=== PATIENT | female | born 1990 | race Caucasian/White ===

== ENCOUNTER 2021-06-29 19:47 | Emergency (ER) | payer OTHER, SELFPAY ==
[2021-06-29] VITALS (23 sets, daily range): BP systolic 130–151; BP diastolic 75–100; PULSE 68–96; RESP 12–19; TEMP 36.8; O2SAT 97–100
--- NOTE | ~2021-06-29 | XR_ITS ---
XR chest 2V DATE: 06/29/2021 20:36 INDICATION: Generalized chest pain for one month. TECHNIQUE: PA and lateral views COMPARISON: 03/01/2009 two-view chest FINDINGS: Normal heart size. No hilar or mediastinal enlargement. No pulmonary infiltrate or consolid ation, pleural effusion or pulmonary vascular congestion or pneumothorax. Included skeletal structure s are unremarkable. IMPRESSION: Negative Reviewed, dictated and finalized at location A. IMPRESSION: Negative
--- NOTE | 2021-06-29 19:48 | ECG_ITS ---
Measurements Intervals [place] Rate: 88 P: 45 [place]: 160 QRS: 20 QRSD: 97 T: 29 QT: 344 QTc: 418 Interpretive Statements SINUS RHYTHM WITHIN NORMAL LIMITS NO PREVIOUS ECG AVAILABLE FOR COMPARISON Electronically Signed On 06-30-2021 11:10:02 CDT by Antwan Osborne M.D.
--- NOTE | 2021-06-29 19:56 | ED.CHESTPAIN ---
HPI - Chest Pain General Chief Complaint: Chest Pain Stated Complaint: chest pain and dizzy Time Seen by Provider: 06/29/21 19:49 Source: patient and family Mode of arrival: ambulatory Limitations: no limitations History of Present Illness HPI narrative: 22-year-old female with history of asthma presented to emergency department for evaluation of intermittent left-sided chest pain that has been ongoing for the last month. Describes a left-sided chest pain that radiates into her left shoulder and back. Patient states she did have follow-up at [facility] yesterday and was called tonight and told to return to the emergency department because of some lab abnormalities. Patient was not told what these abnormalities were. Patient states she did have onset of left-sided chest pain tonight while she was at work. Patient denies any associated shortness of breath with it. Patient does have asthma and is a smoker. Patient does report some current wheeze. Denies any prior history of PE or DVT. Patient denies any lower extremity tenderness or edema. Patient denies any recent fevers coughs or colds. Related Data Home Medications Medication Instructions Recorded Confirmed No Home Medications 06/29/21 Allergies Allergy/AdvReac Type Severity Reaction Status Date / Time tramadol Allergy Mild Rash Verified 06/29/21 19:52 Review of Systems Review of Systems: CONSTITUTIONAL: Denies fever, chills, or sweats. EYES: Denies visual changes, redness, or discharge. ENT: Denies rhinorrhea, congestion, sore throat, or otalgia. CARDIOVASCULAR: Chest pain RESPIRATORY: Denies cough or dyspnea. GASTROINTESTINAL: Denies abdominal pain, nausea, vomiting, or diarrhea. GENITOURINARY: Denies dysuria or hematuria. SKIN: Denies rash or itching. MUSCULOSKELETAL: Denies back pain, joint pain, or myalgia. NEUROLOGIC: Denies headache, numbness, or weakness. PSYCHIATRIC: Denies anxiety or depression. Exam Narrative: APPEARANCE: Well appearing, no pain, no distress, well-nourished. HEAD: normocephalic, atraumatic. EYES: PERRLA/EOMI, conjunctivae clear. NOSE: Normal no drainage NECK: Supple. No adenopathy, no masses. RESPIRATORY: Airway patent, respirations nonlabored. Mild wheeze on exam. No respiratory distress. CARDIOVASCULAR: Regular rate and rhythm without murmurs rubs or gallops. ABDOMINAL: Soft, nontender, nondistended, normal bowel sounds MUSCULOSKELETAL: Moves all extremities. Strength/ROM intact, No edema, No calf tenderness. NEURO: Alert. Cranial nerves II through XII intact. Grossly intact SKIN: Warm, dry. Normal Color Course Course Emergency Course: Called [facility] to see if they had any reason as to why the patient was called. Nurse stated that the patient had called earlier and at that time they were also unable to find any significant lab abnormalities. Nurse did review the CBC CMP TSH trop x2 UA and chest x-ray with no significant abnormalities. Patient was updated on the results of the work-up today including chest x-ray showed no acute cardiopulmonary abnormality. EKG was normal sinus rhythm with no acute ST changes. No evidence of acute STEMI. Patient had negative serial troponins. Patient also had a negative D-dimer. Patient states he does feel improved. Patient was encouraged to have close follow-up with her primary care physician. All questions and concerns were addressed. Patient was in no distress at time of discharge from respiratory. Vital Signs Vital signs: Vital Signs Temperature 98.3 F 06/29/21 19:49 Pulse Rate 91 06/29/21 19:49 Respiratory Rate 16 06/29/21 19:49 Blood Pressure 151/100 H 06/29/21 19:49 Pulse Oximetry 99 06/29/21 19:49 Temperature 98.3 F 06/29/21 19:49 Pulse Rate 94 06/29/21 20:57 Respiratory Rate 16 06/29/21 20:30 Blood Pressure 151/100 H 06/29/21 19:49 Pulse Oximetry 99 06/29/21 19:49 MDM - Chest Pain Lab Data Attestation: I reviewed the patient's lab results
[2021-06-29] MEDS: ASPIRIN 81 MG CHEWABLE TABLET 324 MG PO (20:07)
[2021-06-29 20:09] LABS: Basophils Percent Auto 0.3 % (0.2-1.2); Eosinophils Absolute Auto 0.3 K/mm3 (0-0.3); Eosinophils Percent Auto 2.7 % (0-4.4); Hematocrit 40.7 % (37.0-47.0); Hemoglobin 13.8 g/dL (12.0-15.0); Immature Granulocyte Absolute 0.02 K/mm3 (0.00-0.031); Immature Granulocyte Percent A 0.2 % (0-0.5); Lymphocytes Percent Auto 29.9 % (18.3-44.2); Mean Corpuscular HGB Conc 33.9 g/dl (32-36); Mean Corpuscular Hemoglobin 31.4 pg (26-34); Mean Corpuscular Volume 92.5 fl (80-100); Mean Platelet Volume 9.2 fl (7.4-10.4); Monocytes Absolute Auto 0.5 K/mm3 (0.1-0.6); Monocytes Percent Auto 5.1 % (2.6-8.5); Neutrophils Absolute Auto 6.2 K/mm3 (1.3-6.7); Neutrophils Percent Auto 61.8 % (45.5-73.1); Platelet Count Result 329 k/mm3 (150-375); Red Cell Distribution Width 13.3 % (11.5-14.5); White Blood Count 10.1 K/mm3 (4.5-10.0)
[2021-06-29 20:18] LABS: INR 0.9; Prothrombin Time 12.1 Seconds (11.1-14.7)
[2021-06-29 20:19] LABS: Alanine Aminotransferase 30 U/L (4-35); Albumin Level 4.7 g/dL (3.5-5.1); Alkaline Phosphatase 59 U/L (38-126); Anion Gap 8 mmol/L (8-16); Aspartate Amino Transferase 32 U/L (14-36); Bilirubin,Total 0.1 mg/dL (0.2-1.3); Blood Urea Nitrogen 13 mg/dL (7-17); Calcium 8.9 mg/dL (8.4-10.2); Carbon Dioxide 24 mmol/L (22-30); Chloride 106 mmol/L (98-107); Estimated CRCL calculation 82 ml/min; Estimated Glomerular Filt Rate > 60; Glucose 84 mg/dL (65-110); Lipase 180 U/L (23-300); Potassium 3.8 mmol/L (3.4-5.0); Sodium 138 mmol/L (137-145)
[2021-06-29] MEDS: ALBUTEROL SULFATE NEB 2.5 MG/0.5 ML INH 5 MG INHALATION (20:22)
[2021-06-29 20:29] LABS: Troponin I < 0.012 ng/mL (0.000-0.034)
[2021-06-29 21:14] LABS: D Dimer 0.27 ug/mL (<0.48)
[2021-06-29 21:44] LABS: Add Urine Microscopic? YES; Amorphous Sediment Urine Few; Appearance Urine Cloudy (Clear); Bilirubin Urine Negative (Negative); Blood Urine 1+ (Negative); Color Urine Yellow (Yellow); Glucose Urine UA Negative (Negative); Ketones Urine Negative (Negative); Leukocyte Esterase Ur Negative LEU/UL (Negative); Nitrate Urine Negative (Negative); Protein Urine Negative (Negative); RBC Urine 0-2 /hpf (0-2); Specific Grav Ur 1.015 (1.001-1.035); Squamous Epithelial Cell Urine Many /hpf (Few); Urobilinogen Urine Negative mg/dL (<2.0)
[2021-06-29 23:31] LABS: Troponin I < 0.012 ng/mL (0.000-0.034)
[2021-06-30] VITALS: PULSE 72; RESP 12; O2SAT 97
== END 2021-06-30 00:10 | disposition home or self-care (01) ==
PROVIDERS: Emergency Provider Emergency Medicine
DX: R07.9 Chest pain, unspecified (principal); J45.909 Unspecified asthma, uncomplicated; F17.200 Nicotine dependence, unspecified, uncomplicated
CPT/HCPCS: 36415; 71046; 80053; 81001; 81025; 83690; 84484; 85025; 85380; 85610; 85730; 93005; 94640; 99284; A9270

== ENCOUNTER 2022-04-18 20:57 | Emergency (ER) | payer OTHER, SELFPAY ==
--- NOTE | ~2022-04-18 | XR_ITS ---
EXAMINATION: XR chest 1V portable Exam Date/Time: 04/18/2022 21:35 RE RECORDING MIXER HISTORY: pain Comparison: 06/29/2021. RESULT: Lines, tubes, and devices: None. Lungs and pleura: Clear. Cardiomediastinal silhouette: Stable. Other: No acute osseous or upper abdominal finding. IMPRESSION: No acute cardiopulmonary process. Reviewed, dictated and finalized at location K. RECORDING MIXER
--- NOTE | ~2022-04-18 | CT_ITS ---
Non-contrast CT scan of the Abdomen and Pelvis Clinical indication: Kidney stone Technique: 5 mm axial scans were obtained through the abdomen and pelvis without intravenous or oral contrast. Dose reduction technique was used on this scan by utilizing automated exposure control and iterative reconstruction technique. The dose-length product (DLP) was 692.44 mGy-cm. Findings: Images through the lung bases reveal mild bibasilar atelectatic changes. No hydronephrosis. There is excreted contrast throughout the renal collecting systems, ureters, and b ladder from recent contrast enhanced exam, which markedly limits evaluation for stones. The liver, spleen, pancreas, gallbladder, and adrenals appear normal. There is no aortic aneurysm. There is no evidence of bowel obstruction. Images through the pelvis were performed. There is no evidence of ascites or lymphadenopathy. Urinary bladder is filled with contrast, otherwise unremarkable. No adnexal mass evident. No ascites. Impression: No significant abnormality seen. No hydronephrosis. Evaluation for renal stones is markedly limited due to excreted contrast material throughout the s ystem from recent contrast enhanced exam. Reviewed, dictated and finalized at location M. OR STEREO COMPILER TEAM LEAD Impression: No significant abnormality seen. No hydronephrosis. Evaluation for renal stones is markedly limited due to excreted contrast materi al throughout the system from recent contrast enhanced exam.
--- NOTE | ~2022-04-18 | CT_ITS ---
EXAMINATION: CTA chest PE protocol DATE: 04/18/2022 22:50 INDICATION: + dimer TECHNIQUE: Computed tomography angiography (CTA) of the chest was performed with 100 mL Omnipaque-350 intravenous contrast timed to evaluate the pulmonary arteries. Coronal maximum intensity projection 3D-reconstructions were created by the technologist. The dose-length product (DLP) was 344.06 mGy-cm. Automated exposure control and iterative reconstruction technique were employed. COMPARISON: X-ray chest, same date. FINDINGS: Lung parenchyma and airways: Lingular scar/atelectasis. Mild dependent atelectasis. Pleura: Unremarkable. Thoracic inlet, axillae and chest wall: Unremarkable. Thoracic aorta: Normal. Mediastinum: Small hiatal hernia. Heart and pericardium: Normal. Coronary artery calcifications: Absent. Upper abdomen: No significant finding. Bones: No acute osseous finding. Superior and inferior endplate abnormalities at multiple levels in t he thoracic spine (H shaped vertebral bodies). Pulmonary arteries: Study quality: Study mildly limited by quantum mottle and beam hardening as well as cardiac motion and minimal respiratory motion, but is overall diagnostic. No pulmonary emboli dete cted. IMPRESSION: Study is mildly limited as detailed above, but overall diagnostic. No CT evidence of acute pulmonary embolus. Mild cardiomegaly. Vertebral body endplate deformities that can rarely be seen with Gaucher disease. Reviewed, dictated and finalized at location K. GAN CLERK IMPRESSION: Study is mildly limited as detailed above, but overall diagnostic. No CT eviden ce of acute pulmonary embolus. Mild cardiomegaly. Vertebral body endplate defor mities that can rarely be seen with Gaucher disease.
[2022-04-18 21:12] VITALS: BP 131/102; PULSE 116; RESP 14; TEMP 36.6; O2SAT 100
--- NOTE | 2022-04-18 21:16 | ECG_ITS ---
Measurements Intervals [place] Rate: 85 P: 50 [place]: 161 QRS: 40 QRSD: 100 T: 45 QT: 357 QTc: 425 Interpretive Statements SINUS RHYTHM WITH SINUS ARRHYTHMIA INCOMPLETE RIGHT BUNDLE BRANCH BLOCK BASELINE ARTIFACT- I, III, AVL, AVF BORDERLINE ECG COMPARED TO ECG 06/29/2021 19:57:32 SINUS ARRHYTHMIA NOW PRESENT INCOMPLETE RIGHT BUNDLE-BRANCH BLOCK NOW PRESENT Electronically Signed On 04-19-2022 7:03:52 CORE DRILL OPERATOR HELPER by Nishant Rubio D.O.
[2022-04-18 21:26] LABS: Basophils Absolute Auto 0.1 K/mm3 (0.0-0.1); Basophils Percent Auto 0.5 % (0.2-1.2); Eosinophils Absolute Auto 0.6 K/mm3 (0-0.3); Eosinophils Percent Auto 5.5 % (0-4.4); Hematocrit 42.1 % (37.0-47.0); Hemoglobin 14.4 g/dL (12.0-15.0); Immature Granulocyte Absolute 0.02 K/mm3 (0.00-0.031); Immature Granulocyte Percent A 0.2 % (0-0.5); Lymphocytes Absolute Auto 3.57 K/mm3 (0.9-3.2); Lymphocytes Percent Auto 32.8 % (18.3-44.2); Mean Corpuscular HGB Conc 34.2 g/dl (32-36); Mean Corpuscular Hemoglobin 29.7 pg (26-34); Mean Corpuscular Volume 86.8 fl (80-100); Monocytes Absolute Auto 0.5 K/mm3 (0.1-0.6); Monocytes Percent Auto 4.4 % (2.6-8.5); Neutrophils Absolute Auto 6.2 K/mm3 (1.3-6.7); Neutrophils Percent Auto 56.6 % (45.5-73.1); Platelet Count Result 419 k/mm3 (150-375); Red Blood Count 4.85 M/mm3 (4.2-5.4); Red Cell Distribution Width 13.7 % (11.5-14.5); White Blood Count 10.9 K/mm3 (4.5-10.0)
--- NOTE | 2022-04-18 21:45 | PC.NURSE ---
attempted for pt. UA pt. unable to provided UA
[2022-04-18 22:00] VITALS: BP 136/88; PULSE 88; RESP 15; O2SAT 100
[2022-04-18 22:26] LABS: Alanine Aminotransferase 24 U/L (6-35); Albumin Level 4.8 g/dL (3.5-5.1); Alkaline Phosphatase 109 U/L (38-126); Anion Gap 8 mmol/L (8-16); Aspartate Amino Transferase 24 U/L (14-36); Bilirubin,Total 0.4 mg/dL (0.2-1.3); Blood Urea Nitrogen 9 mg/dL (7-17); Calcium 8.9 mg/dL (8.4-10.2); Carbon Dioxide 24 mmol/L (22-30); Chloride 101 mmol/L (98-107); Estimated Glomerular Filt Rate > 60; Glucose 95 mg/dL (65-110); Lipase 337 U/L (23-300); Potassium 3.2 mmol/L (3.4-5.0); Sodium 133 mmol/L (137-145)
[2022-04-18 22:36] LABS: Appearance Urine Clear (Clear); Bilirubin Urine Negative (Negative); Blood Urine Trace-intact (Negative); Color Urine Yellow (Yellow); Glucose Urine UA Negative (Negative); Ketones Urine Negative (Negative); Leukocyte Esterase Ur Trace LEU/UL (Negative); Nitrate Urine Negative (Negative); Protein Urine Negative (Negative); Specific Grav Ur 1.025 (1.001-1.035); Urobilinogen Urine 0.2 mg/dL (<2.0)
[2022-04-18 22:49] LABS: Add Urine Microscopic? YES; Bacteria Urine 1+ /hpf; Mucus Urine Rare /lpf; Squamous Epithelial Cell Urine Few /hpf (Few)
[2022-04-18 22:52] LABS: Amphetamine Screen Urine Negative (Negative); Barbiturate Screen Urine Negative (Negative); Benzodiazepines Screen Urine Negative (Negative); Cannabinoid Screen Urine Positive (Negative); Cocaine Screen Urine Negative (Negative); Methadone Screen Urine Negative (Negative); Opiate Screen Urine Negative (Negative); Phencyclidine Screen Urine Negative (Negative)
[2022-04-18] MEDS: LACTATED RINGERS 1,000 ML 999 ML IV CONT (22:59)
[2022-04-18] MEDS: POTASSIUM CHLORIDE 20 MEQ PACKET (FOR LIQUID) 40 MEQ PO (22:59)
[2022-04-18 23:00] VITALS: BP 130/80; PULSE 90; RESP 17; O2SAT 97
--- NOTE | 2022-04-18 23:26 | ED.GENADULT ---
HPI - General Adult General Chief complaint: Unspecified Stated complaint: left side pain Time Seen by Provider: 04/18/22 21:13 History of Present Illness HPI narrative: 31-year-old female presents with left rib and flank pain which has been on and off for the past 2 to 3 weeks and became acutely worse today. Related Data Home Medications Medication Instructions Recorded Confirmed No Home Medications 06/29/21 Allergies Allergy/AdvReac Type Severity Reaction Status Date / Time tramadol Allergy Mild Rash Verified 04/18/22 21:14 Course Vital Signs Vital signs: Vital Signs Temperature 97.9 F 04/18/22 21:12 Pulse Rate 116 H 04/18/22 21:12 Respiratory Rate 14 04/18/22 21:12 Blood Pressure 131/102 H 04/18/22 21:12 Pulse Oximetry 100 04/18/22 21:12 Oxygen Delivery Room Air 04/18/22 21:12 Temperature 97.9 F 04/18/22 21:12 Pulse Rate 80 04/19/22 02:00 Respiratory Rate 19 04/19/22 02:00 Blood Pressure 123/89 04/19/22 02:00 Pulse Oximetry 97 04/19/22 02:00 Oxygen Delivery Room Air 04/18/22 21:12 Medical Decision Making Differential Diagnosis Differential Diagnosis: MPRESSION: Study is mildly limited as detailed above, but overall diagnostic. No CT evidence of acute pulmonary embolus. Mild cardiomegaly. Vertebral body endplate deformities that can rarely be seen with Gaucher disease. CT abdomen and pelvis without contrast, no acute abnormality seen, contrast opacified urine limits evaluation of structures, no obstructing urolithiasis. Is a chest with no PE no acute abnormalities identified. Are small dose of Ativan was patient's anxiety seems to be worsening her symptoms. She has tenderness over the left costal cartilage and this seems to be the source of her pain. I discussed all lab and imaging findings and she agrees to follow-up with the primary care referral I have given to work-up the CT results and further investigation into the possible gout shares diagnosis. This does seem to be a musculoskeletal etiology. Vital Signs Vital Signs: Vital Signs Temperature 97.9 F 04/18/22 21:12 Pulse Rate 116 H 04/18/22 21:12 Respiratory Rate 14 04/18/22 21:12 Blood Pressure 131/102 H 04/18/22 21:12 Pulse Oximetry 100 04/18/22 21:12 Oxygen Delivery Room Air 04/18/22 21:12 Temperature 97.9 F 04/18/22 21:12 Pulse Rate 80 04/19/22 02:00 Respiratory Rate 19 04/19/22 02:00 Blood Pressure 123/89 04/19/22 02:00 Pulse Oximetry 97 04/19/22 02:00 Oxygen Delivery Room Air 04/18/22 21:12 Lab Data 04/18/22 21:18 04/18/22 21:34 Labs: Lab Results 04/18/22 04/18/22 04/18/22 Range/Units 21:18 21:34 21:40 WBC 10.9 H (4.5-10.0) K/mm3 RBC 4.85 (4.2-5.4) M/mm3 Hgb 14.4 (12.0-15.0) g/dL Hct 42.1 (37.0-47.0) % MCV 86.8 (80-100) fl MCH 29.7 (26-34) pg MCHC 34.2 (32-36) g/dl RDW 13.7 (11.5-14.5) % Plt Count 419 H (150-375) k/mm3 MPV 10.0 (7.4-10.4) fl Immature Gran % (Auto) 0.2 (0-0.5) % Neut % (Auto) 56.6 (45.5-73.1) % Lymph % (Auto) 32.8 (18.3-44.2) % [place] % (Auto) 4.4 (2.6-8.5) % Eos % (Auto) 5.5 H (0-4.4) % Baso % (Auto) 0.5 (0.2-1.2) % Lymph # (Auto) 3.57 H (0.9-3.2) K/mm3 [place] # (Auto) 0.5 (0.1-0.6) K/mm3 Eos # (Auto) 0.6 H (0-0.3) K/mm3 Baso # (Auto) 0.1 (0.0-0.1) K/mm3 Abs Immat Gran (auto) 0.02 (0.00-0.031) K/mm3 Absolute Neuts (auto) 6.2 (1.3-6.7) K/mm3 Absolute Nucleated RBC 0.0 (0.0-0.012) K/mm3 Nucleated RBC % 0.0 (0.0-0.2) % D-Dimer 0.80 H (<0.48) ug/mL Sodium 133 L (137-145) mmol/L Potassium 3.2 L (3.4-5.0) mmol/L Chloride 101 (98-107) mmol/L Carbon Dioxide 24 (22-30) mmol/L Anion Gap 8 (8-16) mmol/L BUN 9 (7-17) mg/dL Creatinine 0.70 (0.7-1.0) mg/dL Estim Creat Clear Calc Not Reportable Estimated GFR > 60 (59 - ) Glucose 95 (65-11
[2022-04-19] MEDS: KETOROLAC 15 MG/ML VIAL (*BKC) IV PUSH (00:51)
[2022-04-19 01:00] VITALS: BP 125/87; PULSE 74; RESP 19; O2SAT 96
[2022-04-19] MEDS: LORazepam INJ (*CRX) 2 MG/ML VIAL 0.5 MG IV PUSH (01:57)
[2022-04-19 02:00] VITALS: BP 123/89; PULSE 80; RESP 19; O2SAT 97
== END 2022-04-19 02:00 | disposition home or self-care (01) ==
PROVIDERS: Emergency Provider Emergency Medicine
DX: R07.81 Pleurodynia (principal); I45.10 Unspecified right bundle-branch block; I51.7 Cardiomegaly
CPT/HCPCS: 36415; 71045; 71275; 74176; 80053; 80307; 81001; 81025; 83690; 85025; 85380; 87086; 87088; 93005; 96361; 96374; 96375; 99284; A9270; J1885; J2060; J7120; Q9967